=== PATIENT | female | born 1975 | race Caucasian/White ===

== ENCOUNTER 2021-08-19 15:38 | Emergency (ER) | payer SELFPAY ==
--- OUTSIDE RECORDS SUMMARY | 2021-08-19 15:43 | XMS REPORT | Continuity of Care Document ---
:1975 Author Organization [facility] t Address [address] [place] [address] Care Team Providers Name Role Phone CHANNING Attending Clinician Unavailable MARQUISE Attending Clinician Unavailable JANICE Attending Clinician Unavailable Problems This patient has no known problems. Allergies, Adverse Reactions, Alerts This patient has no known allergies or adverse reactions. Medications This patient has no known medications. Procedures This patient has no known procedures. Encounters Start End Encounter Admission Attending Care Care Encounter Source Date/Time Date/Time Type Type Clinicians Facility Department ID 2021-07-19 2021-07-19 Outpatient [facility] [id number] [place] 00:00:00 00:00:00 MENDY [address] 2021-06-29 2021-06-29 Outpatient MARUQISEFORMERLY [facility] [id number] [place] 00:00:00 00:00:00 BARTOLO [address] 2021-06-29 2021-06-29 Outpatient JANICEFORMERLY [facility] [id number] [place] 00:00:00 00:00:00 ALISA [address] 2021-06-17 2021-06-17 Outpatient [facility] [id number] 941 [place] 00:00:00 00:00:[address] ALISA [address] Results This patient has no known results.
[2021-08-19] MEDS ORDERED: MORPHINE 2 MG/ML SYR ONE (16:24)
[2021-08-19] MEDS ORDERED: ONDANSETRON 4 MG/2 ML VIAL ONE (16:25)
[2021-08-19] MEDS ORDERED: NA CHLORIDE 0.9% 500 ML ONE (16:25)
[2021-08-19] MEDS ORDERED: CEFTRIAXONE 1000 MG/VIAL ONE (16:25)
[2021-08-19 16:36] LABS: Absolute Lymphocytes (CBC) 1.6 K/uL (0.7-4.9); Hematocrit 38.6 % (36.0-45.0); Lymphocytes % 12.3 % (15.3-44.8); MPV 7.7 fL (7.6-11.3); RBC Red Blood Cell Count 4.56 M/uL (3.86-4.86)
[2021-08-19 16:54] LABS: ALT/SGPT 22 U/L (12-78); AST/SGOT 13 U/L (15-37); Albumin 3.3 g/dL (3.4-5.0); Alkaline Phosphatase 96 U/L (45-117); BUN Blood Urea Nitrogen 7 mg/dL (7-18); Bicarbonate 23 mmol/L (21-32); Bilirubin Direct < 0.1 mg/dL (0-0.2); Bilirubin Total 0.2 mg/dL (0.2-1.0); Glucose Level 109 mg/dL (74-106); Lipase 75 U/L (73-393); Potassium 3.5 mmol/L (3.5-5.1); Protein, Total 7.9 g/dL (6.4-8.2); Sodium Level 134 mmol/L (136-145)
[2021-08-19 17:06] LABS: Urine Blood 3+ (Negative); Urine Glucose Negative (Negative); Urine Protein Negative (Negative)
--- NOTE | 2021-08-19 17:41 | RAD REPORT ---
EXAM DESCRIPTION: RAD - Chest Single View - 08/19/2021 5:35 pm CLINICAL HISTORY: COUGH Chest pain. COMPARISON: No comparisons FINDINGS: Portable technique limits examination quality. The lungs are grossly clear. The heart is normal in size. No displaced fractures. IMPRESSION: No acute intrathoracic process suspected.
--- NOTE | 2021-08-19 17:44 | RAD REPORT ---
EXAM DESCRIPTION: CTAbdomen Pelvis W Contrast - 08/19/2021 5:22 pm CLINICAL HISTORY: Abdominal pain. ABD PAIN COMPARISON: No comparisons TECHNIQUE: Biphasic CT imaging of the abdomen and pelvis was performed with 100 ml non-ionic IV cont rast. All CT scans are performed using dose optimization technique as appropriate and may include automated exposure control or mA/KV adjustment according to patient size. FINDINGS: The lung bases are clear. The liver, spleen, pancreas, adrenal glands and kidneys are within normal limits. No bowel obstruction, free air, free fluid or abscess. The appendix is normal. No evidence of signi ficant lymphadenopathy. No suspicious bony findings. Evidence of bilateral adnexal cysts. IMPRESSION: No acute intra-abdominal or pelvic finding.
[2021-08-19] MEDS ORDERED: Levofloxacin 750mg IV 750 MG/150 ML BAG IV ONE (17:49)
--- NOTE | 2021-08-19 18:17 | ER ---
Nurse's Notes [facility] Name: Omaira Mckeon Age: 46 yrs Sex: Female : 1975 Arrival Date: 08/19/2021 Time: 15:42 Bed 14 Private MD: Diagnosis: Abdominal tenderness;Essential (primary) hypertension;UTI/ Urinary tract infection, site not specified;Dysuria Presentation: 08/19 15:51 Chief complaint: Patient states: lower stomach has been hurting her for a while about a iw week and now has RLQ pain X 3 days, vomited today , has some urinary frequency had a UTI a month ago. Coronavirus screen: At this time, the client does not indicate any symptoms associated with coronavirus-19. Ebola Screen: Patient negative for fever greater than or equal to 101.5 degrees Fahrenheit, and additional compatible Ebola Virus Disease symptoms Patient denies exposure to infectious person. Patient denies travel to an Ebola-affected area in the 21 days before illness onset. No symptoms or risks identified at this time. Initial Sepsis Screen: Does the patient meet any 2 criteria? No. Patient's initial sepsis screen is negative. Does the patient have a suspected source of infection? No. Patient's initial sepsis screen is negative. Risk Assessment: Do you want to hurt yourself or someone else? Patient reports no desire to harm self or others. Onset of symptoms was August 12, 2021. 15:51 Method Of Arrival: Ambulatory iw 15:51 Acuity: MYLENE 3 iw Triage Assessment: 16:25 General: Appears in no apparent distress. Behavior is calm. 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 - Social history:: Smoking status: Patient reports the use of cigarette tobacco products, smokes one pack cigarettes per day. Screenin:46 Abuse screen: Denies threats or abuse. Denies injuries from another. Nutritional jg9 screening: No deficits noted. Tuberculosis screening: No symptoms or risk factors identified. Fall Risk None identified. Assessment: 16:25 Pain: Complains of pain in abdomen-RLQ x3 days. : Reports pain pelvic urinary jg9 frequency, since 1 month. Musculoskeletal: Reports hip pain. Vital Signs: 15:51 BP 148 / 119; Pulse 123; Resp 16; Temp 99.5; Pulse Ox 100% on R/A; Weight 88.45 kg; iw Height 5 ft. 3 in. (160.02 cm); Pain 9/10; 16:30 BP 140 / 90; Pulse 110; Resp 20 S; Pulse Ox 98% on R/A; jg9 16:45 BP 126 / 83; Pulse 107; Resp 25 S; Pulse Ox 97% ; jg9 17:00 BP 119 / 52; Pulse 102; Resp 24 S; Pulse Ox 99% on R/A; jg9 18:00 BP 139 / 68; Pulse 94; Resp 15 S; Pulse Ox 100% on R/A; jg9 18:30 BP 119 / 60; Pulse 98; Resp 18 S; Pulse Ox 100% on R/A; jg9 15:51 Body Mass Index 34.54 (88.45 kg, 160.02 cm) iw ED Course: 15:42 Patient arrived in ED. ds1 15:53 Triage completed. iw 15:54 Arm band placed on. iw 15:55 Garland Tomas MD is Attending Physician. caleb 16:15 Kary Coleman, RAISA is Primary Nurse. jg9 16:25 Patient has correct armband on for positive identification. Bed in low position. Call jg9 light in reach. 16:25 Inserted saline lock: 20 gauge in right antecubital area, using aseptic technique. jg9 17:14 Urine Culture Sent. 5 17:22 CT Abd/Pelvis - IV Contrast Only In Process Unspecified. EDMS 17:35 Chest Single View XRAY In Process Unspecified. EDMS 18:15 Jennifer Ocampo MD is Referral Physician. caleb 19:14 No provider procedures requiring assistance completed. jg9 19:14 IV discontinued. jg9 Administered Medications: 16:30 Drug: NS 0.9% 500 ml Route: IV; Rate: bolus; Site: right antecubital; jg9 17:41 Follow up: IV Status: Completed infusion; IV Intake: 500ml jg9 16:30 Drug: Zofran (Ondansetron) 4 mg Route: IVP; Site: right antecubital; jg9 17:41 Follow up: Response: No adverse reaction jg9 16:32 Drug: morphine 2 mg Route: IVP; Site: right antecubital; jg9 17:41 Follow up: Response: No adverse reaction; Pain is decreased jg9 16:47 Drug: Rocephin (cefTRIAXone) 1 grams Route: IV; Rate: per protocol; Site: right jg9 antecubital; 17:41 Follow up: Response: No adverse reaction jg9 17:57 Drug: levofloxacin 750 mg Volume: 150 ml; Route: IVPB; Infused Over: 90 mins; Site: 9 right antecubital; Intake: 17:41 IV: 500ml; Total: 500ml. jg9 Outcome: 18:16 Discharge ordered by MD. ellis 19:14 Discharged to home j9 19:14 Condition: stable 19:14 Discharge instructions given to patient, Instructed on discharge instructions, follow up and referral plans. Demonstrated understanding of instructions, follow-up care, medications, Prescriptions given X 2. 19:14 Patient left the ED. jg9 Addendum: 08/22/2021 07:28 Addendum: Culture Results: Positive urine culture. No further action required. Bacteria e b sensitive to prescribed antibiotic. Signatures: Dispatcher [employer] EDOK Garland Tomas MD MD cha Sanford, Demi ds1 Jordyn Edwards RN RN iw Martinez, Maria [facility] Rachel Lora Jennifer, RN RN jg9
--- NOTE | 2021-08-19 18:17 | EDPHYS ---
Physician Documentation [facility] Name: Omaira Mckeon Age: 46 yrs Sex: Female : 1975 Arrival Date: 08/19/2021 Time: 15:42 Bed 14 Private MD: Garland Lin HPI: 08/19 18:09 This 46 yrs old Female presents to ER via Ambulatory with complaints of caleb Pelvic/Low abd Pain, Hip Pain. 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 - Social history:: Smoking status: Patient reports the use of cigarette tobacco products, smokes one pack cigarettes per day. ROS: 18:11 Constitutional: Negative for fever, chills, and weight loss, Eyes: Negative for injury, caleb pain, redness, and discharge, ENT: Negative for injury, pain, and discharge, Neck: Negative for injury, pain, and swelling, Cardiovascular: Negative for chest pain, palpitations, and edema, Respiratory: Negative for shortness of breath, cough, wheezing, and pleuritic chest pain, Back: Negative for injury and pain, : Negative for injury, bleeding, discharge, and swelling, MS/Extremity: Negative for injury and deformity, Skin: Negative for injury, rash, and discoloration, Neuro: Negative for headache, weakness, numbness, tingling, and seizure, Psych: Negative for depression, anxiety, suicide ideation, homicidal ideation, and hallucinations, Allergy/Immunology: Negative for hives, rash, and allergies, Endocrine: Negative for neck swelling, polydipsia, polyuria, polyphagia, and marked weight changes, Hematologic/Lymphatic: Negative for swollen nodes, abnormal bleeding, and unusual bruising. 18:11 Abdomen/GI: Positive for abdominal pain, nausea, abdominal cramps, of the suprapubic area. Exam: 18:11 Constitutional: This is a well developed, well nourished patient who is awake, alert, caleb and in no acute distress. Head/Face: Normocephalic, atraumatic. Eyes: Pupils equal round and reactive to light, extra-ocular motions intact. Lids and lashes normal. Conjunctiva and sclera are non-icteric and not injected. Cornea within normal limits. Periorbital areas with no swelling, redness, or edema. ENT: Nares patent. No nasal discharge, no septal abnormalities noted. Tympanic membranes are normal and external auditory canals are clear. Oropharynx with no redness, swelling, or masses, exudates, or evidence of obstruction, uvula midline. Mucous membranes moist. Neck: Trachea midline, no thyromegaly or masses palpated, and no cervical lymphadenopathy. Supple, full range of motion without nuchal rigidity, or vertebral point tenderness. No Meningismus. Chest/axilla: Normal chest wall appearance and motion. Nontender with no deformity. No lesions are appreciated. Cardiovascular: Regular rate and rhythm with a normal S1 and S2. No gallops, murmurs, or rubs. Normal PMI, no JVD. No pulse deficits. Respiratory: Lungs have equal breath sounds bilaterally, clear to auscultation and percussion. No rales, rhonchi or wheezes noted. No increased work of breathing, no retractions or nasal flaring. Back: No spinal tenderness. No costovertebral tenderness. Full range of motion. Female : Normal external genitalia. Skin: Warm, dry with normal turgor. Normal color with no rashes, no lesions, and no evidence of cellulitis. MS/ Extremity: Pulses equal, no cyanosis. Neurovascular intact. Full, normal range of motion. Neuro: Awake and alert, GCS 15, oriented to person, place, time, and situation. Cranial nerves II-XII grossly intact. Motor strength 5/5 in all extremities. Sensory grossly intact. Cerebellar exam normal. Normal gait. Psych: Awake, alert, with orientation to person, place and time. Behavior, mood, and affect are within normal limits. 18:11 Abdomen/GI: Inspection: distension, that is mild, Bowel sounds: active, all quadrants, Palpation: mild abdominal tenderness, in the suprapubic area, Liver: no appreciated palpable abnormalities, Hernia: not appreciated. 18:19 ECG was reviewed by the Attending Physician. [facility] Vital Signs: 15:51 BP 148 / 119; Pulse 123; Resp 16; Temp 99.5; Pulse Ox 100% on R/A; Weight 88.45 kg; iw Height 5 ft. 3 in. (160.02 cm); Pain 9/10; 16:30 BP 140 / 90; Pulse 110; Resp 20 S; Pulse Ox 98% on R/A; jg9 16:45 BP 126 / 83; Pulse 107; Resp 25 S; Pulse Ox 97% ; jg9 17:00 BP 119 / 52; Pulse 102; Resp 24 S; Pulse Ox 99% on R/A; jg9 18:00 BP 139 / 68; Pulse 94; Resp 15 S; Pulse Ox 100% on R/A; jg9 18:30 BP 119 / 60; Pulse 98; Resp 18 S; Pulse Ox 100% on R/A; jg9 15:51 Body Mass Index 34.54 (88.45 kg, 160.02 cm) iw MDM: 15:55 Patient medically screened. caleb 18:13 Differential diagnosis: kidney stone, nonspecific abdominal pain, pelvic inflammatory caleb disease, urinary tract infection, Cholelithiasis, diverticulitis, Hepatitis, non-specific abd pain, pancreatitis. Data reviewed: vital signs, nurses notes, lab test result(s), EKG, radiologic studies, CT scan, plain films. 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 Test interpretation: by ED physician or midlevel provider: ECG, plain radiologic studies. Counseling: I had a detailed discussion with the patient and/or guardian regarding: the historical points, exam findings, and any diagnostic results supporting the discharge/admit diagnosis, lab results, radiology results, the need for outpatient follow up, for definitive care, a family practitioner, an OB/Gyne specialist. 08/19 15:58 Order name: Basic Metabolic Panel; Complete Time: 17:32 [facility] 08/19 15:58 Order name: CBC with Diff; Complete Time: 17:32 [facility] 08/19 15:58 Order name: Hepatic Function; Complete Time: 17:32 [facility] 08/19 15:58 Order name: Lipase; Complete Time: 17:32 [facility] 08/19 15:58 Order name: Urine Culture [facility] 08/19 15:58 Order name: Troponin High Sensitivity; Complete Time: 17:32 [facility] 08/19 15:58 Order name: Chest Single View XRAY; Complete Time: 17:43 [facility] 08/19 15:58 Order name: CT Abd/Pelvis - IV Contrast Only; Complete Time: 17:53 [facility] 08/19 17:06 Order name: Urine Dipstick-Ancillary; Complete Time: 17:32 EDMS 08/19 17:29 Order name: Urine --Ancillary (enter results) bd 08/19 15:58 Order name: IV Saline Lock; Complete Time: 16:47 [facility] 08/19 15:58 Order name: Labs collected and sent; Complete Time: 16:47 [facility] 08/19 15:58 Order name: Urine Dipstick-Ancillary (obtain specimen); Complete Time: 17:14 [facility] 08/19 15:58 Order name: EKG; Complete Time: 15:59 [facility] 08/19 15:58 Order name: EKG - Nurse/Tech; Complete Time: 16:47 [facility] EC:19 Rate is 109 beats/min. Rhythm is regular. QRS [place] is Normal. ID interval is normal. [facility] QRS interval is normal. QT interval is normal. No Q waves. T waves are Normal. No ST changes noted. Clinical impression: NSR w/ Non-specific ST/T Changes, Sinus tachycardia, and No evidence of ischemia. Interpreted by me. Reviewed by me. Administered Medications: 16:30 Drug: NS 0.9% 500 ml Route: IV; Rate: bolus; Site: right antecubital; jg9 17:41 Follow up: IV Status: Completed infusion; IV Intake: 500ml j9 16:30 Drug: Zofran (Ondansetron) 4 mg Route: IVP; Site: right antecubital; jg9 17:41 Follow up: Response: No adverse reaction j9 16:32 Drug: morphine 2 mg Route: IVP; Site: right antecubital; jg9 17:41 Follow up: Response: No adverse reaction; Pain is decreased j9 16:47 Drug: Rocephin (cefTRIAXone) 1 grams Route: IV; Rate: per protocol; Site: right j9 antecubital; 17:41 Follow up: Response: No adverse reaction j9 17:57 Drug: levofloxacin 750 mg Volume: 150 ml; Route: IVPB; Infused Over: 90 mins; Site: 9 right antecubital; Disposition Summary: 08/19/21 18:16 Discharge Ordered Location: Home caleb Problem: new caleb Symptoms: have improved caleb Condition: Stable caleb Diagnosis - Abdominal tenderness caleb - Essential (primary) hypertension caleb - UTI/ Urinary tract infection, site not specified caleb - Dysuria caleb Followup: caleb - With: Private Physician - When: 2 - 3 days - Reason: Recheck today's complaints, Continuance of care, Re-evaluation by your physician Followup: caleb - With: Jennifer Ocampo MD - When: 2 - 3 days - Reason: Recheck today's complaints, Re-evaluation by your physician Discharge Instructions: - Discharge Summary Sheet caleb - Dysuria caleb - Hypertension, Adult caleb - Hypertension, Adult, [id number] caleb - How to Take Your Blood Pressure, [id number] caleb - Fever, Adult caleb - Managing Your Hypertension caleb - Fever, Adult, [id number] caleb Forms: - Medication Reconciliation Form caleb - Thank You Letter caleb - Antibiotic Education caleb - Prescription Opioid Use caleb Prescriptions: - dicyclomine 20 mg Oral Tablet - take 1 tablet by ORAL route 4 times per day; 28 tablet; Refills: 0, Product claeb Selection Permitted - levofloxacin 750 mg Oral Tablet - take 1 tablet by ORAL route once daily; 7 tablet; Refills: 0, Product Selection caleb Permitted Signatures: Dispatcher [employer] Garland Mckeon MD MD cha Williams, Irene, RN Kary Dias RN RN jg9
[2021-08-19 19:22] VITALS: TEMP 99.5
[2021-08-19 19:48] VITALS: BP 114/61; O2SAT 98
--- NOTE | 2021-08-21 15:17 | EKG ---
Test Date: 2021-08-19 Test Time: 16:29:29 Fish And Wildlife Technician: EITAN MEASUREMENT RESULTS: Intervals: Rate: 109 TX: 116 QRSD: 88 QT: 342 QTc: 460 [place]: P: 42 TX: 116 QRS: -26 T: 36 INTERPRETIVE STATEMENTS: Sinus tachycardia Low voltage QRS Cannot rule out Anterior infarct, age undetermined Abnormal ECG No previous ECG available for comparison Electronically Signed On 08-21-21 15:14:55 GIS PROGRAMMER by Mitch Jordan
== END 2021-08-19 19:14 | disposition home or self-care (01) ==
LOC: ER 15:38
DX: N39.0 Urinary tract infection, site not specified (principal); R30.0 Dysuria; I10 Essential (primary) hypertension; F17.210 Nicotine dependence, cigarettes, uncomplicated
CPT/HCPCS: 36415; 71045; 74177; 80048; 80076; 81003; 81025; 83690; 84484; 85025; 87077; 87086; 87088; 87186; 93005; 96361; 96374; 96375; 99284; J2270; J2405; J7040